=== PATIENT | female | born 1990 | race Caucasian/White ===

== ENCOUNTER 2017-08-14 13:02 | Observation (INO) ==
[2017-08-14] MEDS ORDERED: Ringers Solution, Lactated 1,000 ML IVC ONE (13:53)
[2017-08-14 14:34] LABS: Basophils % 0.3 %; Eosinophils # 0.1 K/mcL (0.0-0.6); Eosinophils % 1.2 %; Hematocrit 35.9 % (35.3-44.9); Hemoglobin 11.8 g/dL (11.5-15.4); Immature Granulocytes % 0.4 % (0-4); Lymphocytes # 1.7 K/mcL (0.6-4.6); Lymphocytes % 14.9 %; Mean Corpuscular HGB Conc 32.9 g/dL (31.6-35.5); Mean Corpuscular Hemoglobin 30.3 pg (28.0-33.3); Mean Corpuscular Volume 92.3 fL (83.0-100.0); Mean Platelet Volume 10.3 fL (9.4-12.4); Monocytes # 0.8 K/mcL (0.0-1.3); Monocytes % 7.4 %; Neutrophils # 8.5 K/mcL (1.6-8.9); Platelet Count 301 K/mcL (140-400); Red Blood Count 3.89 M/mcL (3.82-4.97); Red Cell Distribution Width 14.2 % (11.5-14.5); Segmented Neutrophils % 75.8 %
[2017-08-14 14:37] LABS: Bilirubin,Urine Negative (Negative); Blood,Urine Negative (Negative); Clarity,Urine Turbid (Clear); Color,Urine Dark Yellow (Yellow); Glucose,Urine (UA) Normal (Normal); Ketones,Urine Trace mg/dL (Negative); Leukocyte Esterase,Urine Small (Negative); Nitrite,Urine Negative (Negative); Protein,Urine 30 mg/dL (Neg-Trace); Specific Gravity,Urine 1.028 (1.010-1.025); Urobilinogen,Urine Normal (Normal)
[2017-08-14 14:38] LABS: Squamous Epithelial Cell,Urine Many per lpf (None-Few); WBC,Urine 30-50 per hpf (0-3)
[2017-08-14 14:56] LABS: Bacteria,Urine Many per hpf (None-Few); Calcium Oxalate Crystals,Urine Present
[2017-08-14 14:57] LABS: RBC,Urine 0-3 per hpf (0-3); Renal Epithelial Cells,Urine Few per hpf (None-Few)
[2017-08-14 14:58] LABS: Mucus,Urine Moderate (Few)
[2017-08-14 15:01] LABS: Amphetamine Screen,Urine Negative ng/mL (Cutoff=1000); Barbiturate Screen,Urine Negative ng/mL (Cutoff=200); Benzodiazepines Screen,Urine Negative ng/mL (Cutoff=200); Cannabinoid Screen,Urine Negative ng/mL (Cutoff = 50); Cocaine Screen,Urine Negative ng/mL (Cutoff= 300); Opiate Screen,Urine Negative ng/mL (Cutoff=300); Phencyclidine Screen,Urine Negative ng/mL (Cutoff=25)
--- NOTE | 2017-08-14 15:07 | OB/GYN Progress Note ---
Date of Encounter: 08/14/17 Time of Encounter: 15:02 - Assessment and Plan (1) Viral gastroenteritis Current Visit: Yes Status: Acute Pt with watery diarrhea and vomiting since 0300 yesterday. Pt hydrated with fluid, imodium po. Advised to continue to hydrate. Will discharge home in stable condition. (2) 35 weeks gestation of Current Visit: Yes Status: Acute (3) Elevated blood pressure affecting in third trimester, antepartum Current Visit: Yes Status: Acute Pt with mild BP elevation noted. PIH labs negative. Subjective - Subjective Principal diagnosis: Diarrhea Interval history: 27 y/o female at 35 6/7 presents to L&D with complaints of nausea, vomiting, diarrhea. She has had diarrhea approximately q1/2 hr since 0300 yesterday. She vomitted 3-4 times yesterday, twice today. She has noticed a racing heart, worse GERD despite omeprazole and low grade fever. She has kept some fluids and food down, but diarrhea has continued and her fatigue is worsening. She notes normal movement. Denies vaginal loss of fluid or bleeding, CP, sob. Antepartum ROS: movement normal, no loss of fluid, no vaginal bleeding, no contractions Objective - Vital Signs Vital Signs: Intake and Output 08/13/17 08/14/17 08/14/17 23:59 07:59 15:59 Other: Weight 116 kg Patient Weight 08/14/17 23:59 Weight 116 kg - Exam FHR: auscultation normal, category 1 Auscultation: bilateral: normal Abdomen: Present: normal appearance, soft, gravid, tenderness (diffuse), other ( hyperactive BS) Uterus: Present: normal, firm Comments: tachycardia - Labs Labs: Abnormal lab results WBC 11.2 K/mcL (4.3-11.1) H 08/14/17 14:15 Urine Clarity Turbid (Clear) A 08/14/17 14:25 Ur Specific [place] 1.028 (1.010-1.025) H 08/14/17 14:25 Urine Protein 30 mg/dL (Neg-Trace) H 08/14/17 14:25 Urine Ketones Trace mg/dL (Negative) H 08/14/17 14:25 Ur Leukocyte Esterase Small (Negative) H 08/14/17 14:25 Urine Microscopic WBC 30-50 per hpf (0-3) H 08/14/17 14:25 Ur Squamous Epith Cells Many per lpf (None-Few) H 08/14/17 14:25 Urine Bacteria Many per hpf (None-Few) H 08/14/17 14:25 Urine Mucus Moderate (Few) H 08/14/17 14:25 - Allied health notes Allied health notes reviewed: nursing
[2017-08-14 16:35] LABS: Protein/Creatinine Ratio,Urine 0.16 mg/mg (0.00-0.20)
[2017-08-14 16:38] LABS: Alanine Aminotransferase 8 Units/L (7-52); Aspartate Amino Transferase 15 Units/L (13-39); BUN/Creatinine Ratio 14 (6-26); Blood Urea Nitrogen 9 mg/dL (6-20); Lactate Dehydrogenase 129 Units/L (140-271); Uric Acid 6.1 mg/dL (2.3-7.6); eGFR For African Americans > 60 (> 60); eGFR For Non-African Americans > 60 (> 60)
== END 2017-08-14 16:45 | disposition home or self-care (01) ==
LOC: 1NENULAB
PROVIDERS: ADMIT Advanced Practice Midwife; ATTEND Advanced Practice Midwife

== ENCOUNTER 2017-09-02 08:16 | Inpatient (IN) ==
[2017-09-02 04:07] LABS: Amphetamine Screen,Urine Negative ng/mL (Cutoff=1000); Barbiturate Screen,Urine Negative ng/mL (Cutoff=200); Benzodiazepines Screen,Urine Negative ng/mL (Cutoff=200); Cannabinoid Screen,Urine Negative ng/mL (Cutoff = 50); Cocaine Screen,Urine Negative ng/mL (Cutoff= 300); Opiate Screen,Urine Negative ng/mL (Cutoff=300); Phencyclidine Screen,Urine Negative ng/mL (Cutoff=25)
[2017-09-02 04:29] LABS: Basophils % 0.2 %; Eosinophils # 0.2 K/mcL (0.0-0.6); Eosinophils % 1.3 %; Hemoglobin 11.7 g/dL (11.5-15.4); Immature Granulocytes % 0.6 % (0-4); Lymphocytes # 2.2 K/mcL (0.6-4.6); Lymphocytes % 15.6 %; Mean Corpuscular HGB Conc 33.4 g/dL (31.6-35.5); Mean Corpuscular Hemoglobin 30.2 pg (28.0-33.3); Mean Corpuscular Volume 90.4 fL (83.0-100.0); Mean Platelet Volume 10.7 fL (9.4-12.4); Monocytes # 0.7 K/mcL (0.0-1.3); Neutrophils # 10.9 K/mcL (1.6-8.9); Platelet Count 305 K/mcL (140-400); Red Blood Count 3.87 M/mcL (3.82-4.97); Red Cell Distribution Width 13.9 % (11.5-14.5); Segmented Neutrophils % 77.3 %
[2017-09-02 04:42] LABS: Alanine Aminotransferase 9 Units/L (7-52); Aspartate Amino Transferase 17 Units/L (13-39); BUN/Creatinine Ratio 14 (6-26); Blood Urea Nitrogen 10 mg/dL (6-20); Lactate Dehydrogenase 152 Units/L (140-271); Uric Acid 6.1 mg/dL (2.3-7.6); eGFR For African Americans > 60 (> 60); eGFR For Non-African Americans > 60 (> 60)
[2017-09-02 05:13] LABS: Protein/Creatinine Ratio,Urine 0.37 mg/mg (0.00-0.20)
--- NOTE | 2017-09-02 07:21 | OB/GYN History & Physical ---
Date of Encounter: 09/02/17 Time of Encounter: 07:17 Assessment and Plan (1) 38 weeks gestation of Current visit: Yes Status: Acute (2) Rh negative state in antepartum period Current visit: Yes Status: Acute (3) Elevated blood pressure affecting in third trimester, antepartum Current visit: No Status: Acute Will discuss POC with Dr. Gore. Anticipate admission for augmentation of labor due to elevated BP with elevated UPCR at 38 weeks. (4) GBS (group B Streptococcus carrier), +RV culture, currently Current visit: Yes Status: Acute History of Present Illness Chief complaint: contractions HPI: Ms. Donahue is a 27 year old female presenting at 38w4d with c/o contractions. She was found to be 2cm which is unchanged from last office visit , however, she was also found to have elevated blood pressures while in triage. PIH labs were WNL except urine protein:creatinine ratio was 0.37. Her blood pressures varied from normal to 140's/90's. She reports a mild headache since arrival to triage. No other complaints. No LF or VB. Good FM. A negative GBS positive Rubella immune Serologies negative Past Med Surg Social Fam HX - Past Medical History Medical history: other Psychiatric history: anxiety, depression - Social History Smoking Status: Never smoker Smokeless Tobacco Status: No Alcohol use: none Drug use: none - Family History Mother Living Status: Still Living Hx Family Cardiac Disorders: Yes (HTN) Hx Family Respiratory Disorders: Yes (copd) Hx Family Endocrine Disorder: Yes (diabetes) Obstetrical History - Pregnancies : 3 Para: 1 Term: 1 Ab's: 1 Livin Medications and Allergies Omeprazole [PriLOSEC] 20 mg PO DAILY 02/04/16 [History] Vit Calc,Iron,Folic [ Vitamins] 1 tab PO DAILY 08/14/17 [ History] Terazol 09/02/17 [History] 3 Allergy/AdvReac Type Severity Reaction Status Date / Time Sulfa (Sulfonamide Allergy Hives Verified 09/02/17 02:52 Antibiotics) Review of System OB All systems PM: reviewed and no additional remarkable complaints except as stated Exam - Constitutional Constitutional: well developed, well nourished, no acute distress - HEENT HEENT: Mucus Membranes Moist - Lungs Respiratory exam: CTAB - Cardiovascular Cardiovascular exam: RRR - Abdomen Abdomen: Present: gravid, non tender - Extremities Extremities exam: pedal edema (mild) Deep Tendon Reflex Grade: 2+ Normal - Vagina Vagina: Present: normal moisture - Cervix Dilation: 2 Effacement: 25 Station: -2 - Uterus Uterus exam: Present: normal size - Anus/Rectum Anus/Rectum: Present: normal perianal skin Results Result Diagrams: 09/02/17 04:05 09/02/17 04:05 Abnormal lab results WBC 14.1 K/mcL (4.3-11.1) H 09/02/17 04:05 Hct 35.0 % (35.3-44.9) L 09/02/17 04:05 Neutrophils # 10.9 K/mcL (1.6-8.9) H 09/02/17 04:05 Protein/Creatinin Ratio 0.37 mg/mg (0.00-0.20) H 09/02/17 03:40 Urine Total Protein 42 mg/dL (1-14) H 09/02/17 03:40 All other labs normal. - VTE Reasons for not Prescribing Prophylaxis: Treatment not Indicated - Low risk for VTE
[~2017-09-02 08:16] MED LIST: *HR* Nalbuphine 10 MG/ML AMPUL IVP PRN; Famotidine 20 MG/2 ML VIAL IVP PRN; Lidocaine 1% 20 ML MDV INFILT PRN; Naloxone 0.4 MG/ML INJ IVP PRN; Ondansetron 4 MG/2 ML VIAL IVP PRN
[2017-09-02] MEDS ORDERED: Ringers Solution, Lactated 1,000 ML IVC SCH (08:30)
[2017-09-02] MEDS ORDERED: Penicillin G Potassium 5,000,000 UNIT in 0.9 % Sodium Chloride Mini Bag 100 ML IVPB ONE (09:45)
--- NOTE | 2017-09-02 10:40 | OB Labor Progress Note ---
Date of Encounter: 09/02/17 Time of Encounter: 10:38 Labor Progress Note - Subjective Subjective: Pt reports contractions are manageable - Cervix Cervix: 4/50/-2 - Heart Tones Heart Tones: Baseline 140 Moderate variability Accelerations present 15x15 No decelerations FHR category I - [place]: Contractions every 2-4 - Interventions Interventions: Start IV PCN - Plan Plan: Continue expectant management IV pcn for gbs prophylaxis CEFM Anticipate Dr. Gore aware of poc and agrees
--- NOTE | 2017-09-02 10:52 | Anesthesia Evaluation PreOp ---
Date of Encounter: 09/02/17 Time of Encounter: 10:50 - Past History Planned Operation: BETTIE Cardiac History: Denies any Significant Hx Pulmonary History: Asthma (remote, exacerbates w URI) SPINDLE TESTER History: Denies Any Significant HX Other Medical History: GERD Anesthesia History: No Prior Anesthetic Complications, Past Anesthesia (isa, bettie, tonsil) : Yes Test: Positive Alcohol Use: none Drug use: none Medications and Allergies Omeprazole [PriLOSEC] 20 mg PO DAILY 02/04/16 [History] Vit Calc,Iron,Folic [ Vitamins] 1 tab PO DAILY 08/14/17 [ History] Terazol 09/02/17 [History] 3 Allergy/AdvReac Type Severity Reaction Status Date / Time Sulfa (Sulfonamide Allergy Hives Verified 09/02/17 02:52 Antibiotics) - Meds/Allergy Pre-op Review Medications Reviewed: Yes Allergies Reviewed: Yes Beta Blockers on Current Med List: No Anesthesia Results - Labs 09/02/17 04:05 09/02/17 04:05 Anesthesia Exam see nsg note Height: 5'7" Weight: 116 NPO (# of Hours): 3 Pain Scale: 2 Pain Scale Used: Numeric (1 - 10) - HEENT Pupil (Motor): Pupils equal Mallampati: III Teeth: Normal Oral Opening: Greater than 3 - SPINDLE TESTER LOC: Oriented SPINDLE TESTER Motor: Normal RUE, Normal LUE, Normal RLE, Normal LLE, Normal Face SPINDLE TESTER Sensory: Normal: RUE, LUE, RLE, LLE, Face - Cardiac Rhythm: Regular Murmur: None - Pulmonary Breath Sounds: bilateral Clear Respiratory Effort: Symmetrical Anesthesia Assess/Plan ASA Score: 2 Modified [place] Scale for Level of Consciousness: Cooperative, oriented, and tranquil Anesthetic Plan: Regional Autologous Blood: No Monitoring Plan: Standard Monitors Recovery Plan: Other (risks discussed, questions answered, consented)
[2017-09-02] MEDS ORDERED: Mag Hydrox/Al Hydrox/Simeth 30 ML UDC PO PRN (12:59)
[2017-09-02] MEDS: Penicillin G Potassium 2,500,000 UNIT in 0.9 % Sodium Chloride 100 ML IVPB SCH ×2 (14:08→19:27)
[2017-09-02] MEDS ORDERED: Oxytocin 20 units/ LR 1000 mL 20 UNIT/1,000 ML BAG IVC SCH (14:15)
--- NOTE | 2017-09-02 16:25 | OB Labor Progress Note ---
Date of Encounter: 09/02/17 Time of Encounter: 16:22 Labor Progress Note - Subjective Subjective: Pt reports contractions continue to be mild - Cervix Cervix: 4/50/-2 - Heart Tones Heart Tones: Baseline 155 Moderate variability Accelerations present 15x15 No decelerations FHR Category I - [place]: Contractions every 5-6 minutes - Interventions Interventions: continue to increase pitocin - Plan Plan: Continue expectant mangement. Use peanut ball Anticipate vaginal delivery
--- NOTE | 2017-09-02 19:28 | OB Labor Progress Note ---
Date of Encounter: 09/02/17 Time of Encounter: 19:11 Labor Progress Note - Subjective Subjective: Pt reports mild discomfort with contractions. Rates them 5/10. Not ready for epidural yet. Dr. Gore to bedside re: no cervical change for several hours. Discussion of epidural with AROM vs. c/s was had and patient chooses epidural with AROM. - Cervix Cervix: 4/50/-3 - Heart Tones Heart Tones: Baseline 135 Moderate variability Accelerations present 15x15 No decelerations FHR Category I - [place]: Contractions 3-4 and palpate mild - Interventions Interventions: Epidural with AROM per Dr. Gore - Plan Plan: Place epidural Plan for Dr. Gore to AROM Anticipate
[2017-09-02] MEDS ORDERED: *HR* Ropivacaine/PF 0.2% 20 ML VIAL EP ONE ×2 (19:33→19:36)
[2017-09-02] MEDS ORDERED: *HR* FentaNYL (PF) 100 MCG/2 ML VIAL EP ONE ×2 (19:33→19:36)
[2017-09-02] MEDS ORDERED: Epidural Premix (fent/bupiv) 110 ML EP ONE (19:38)
[2017-09-02] MEDS ORDERED: *HR* FentaNYL (PF) 100 MCG/2 ML VIAL ONE (19:38)
[2017-09-02] MEDS ORDERED: *HR* Ropivacaine/PF 0.2% 20 ML VIAL ONE (19:39)
[2017-09-02] MEDS ORDERED: Epidural Premix (fent/bupiv) 110 ML EP SCH ×2 (19:45)
--- NOTE | 2017-09-02 20:05 | Anesthesia Procedures ---
Date of Encounter: 09/02/17 Time of Encounter: 20:03 Procedures: Anesthesia - Epidural/Spinal Patient examined: Yes OB Eval: Gestational age: 84.4 OB Eval: : 3 OB Eval: Hx Para: 1 OB Eval: Dilated at (cm): 5 OB Eval: Contractions: Non-stressed pattern Consent Obtained: Yes Supplemental Oxygen: None/Room Air Site Prep: Aseptic Technique, Sterile prep and drape, 0.5% Chlorhexidine/Alcohol Patient position: upright Local Anesthetic: Lidocaine 1% Amount of Local Anesthetic used: 3 Touhy Needle Gauge: 18 Touhy Needle Depth (cm): 8 Catheter Depth at Skin (cm): 18 Test Dose (1.5% Lido + Epi): Volume given (mls): 3 Test Dose Result: Negative Loading Dose: Fentanyl (mcg): 100 Loading Dose: Other: rop 0.2% 10 cc Loading Dose Administered: Thru Touhy Needle Infusion Med: 0.125% Bupivacaine w/ 2 mcg/ml Fentanyl Infusion Rate (mls/hr): 15 (pcea 5cc q30") Catheter Secured in Place: Tegaderm Interspace Used: L3-L4 Loss of Resistance (LALITHA): Yes Blood: No CSF: No Paresthesia: No Procedure: aseptic, tolerated well, VSS, effective Vitals + FHT's: 147/78 108 fht 133
--- NOTE | 2017-09-02 21:31 | OB Labor Progress Note ---
Date of Encounter: 09/02/17 Time of Encounter: 21:40 Labor Progress Note - Subjective Subjective: Pt comfortable with epidural. Discussion ongoing regarding how to proceed for labor to progress. Pt and partner feel secure in their decision to AROM. Will proceed with Dr. Gore in the room. - Cervix Cervix: 4/50/-3 - Heart Tones Heart Tones: Baseline 140 Moderate variability Accelerations 15x15 No decelerations FHR Category I - [place]: Contractions present q 3-5 - Interventions Interventions: AROM clear fluid per Dr. Gore with fundal pressure from CNM per request IUPC and FSE placed without difficulty per Dr. Gore. After placement, FHR dropped to 60's. Many position changes were made from left side to right side and hands and knees with moderate recovery of FHR. O2 applied and IV bolus infusing. - Plan Plan: Continue to monitor closely Restart pitocin at 2mu/min Frequent position changes with peanut ball Anticipate Dr. Gore aware of POC and agrees
[2017-09-03] MEDS ORDERED: Epidural Premix (fent/bupiv) 110 ML EP ONE ×2 (02:37→07:35)
[2017-09-03] MEDS: Penicillin G Potassium 2,500,000 UNIT in 0.9 % Sodium Chloride 100 ML IVPB SCH ×2 (04:39→08:31)
--- NOTE | 2017-09-03 05:14 | OB Labor Progress Note ---
Date of Encounter: 09/03/17 Time of Encounter: 05:11 Labor Progress Note - Subjective Subjective: Pt reports she is comfortable with epidural. - Cervix Cervix: 7-8/90/-1-0 - Heart Tones Heart Tones: Baseline 130 Moderate variability Accelerations present 15x15 Frequent variable decelerations FHR Category II - [place]: Contractions q 2-3 minutes. - Interventions Interventions: SVE Position change with peanut ball - Plan Plan: Continue expectant management Frequent position changes with peanut ball Anticipate
--- NOTE | 2017-09-03 09:58 | OB/GYN Procedure Note ---
Delivery - Delivery Date: 09/03/17 Provider: Aleksandr Gore (Caitlin Rojas DO, PGY2) Intrapartum events: polyhydramnios Delivery induction: AROM, oxytocin, misoprostol Delivery monitor: external FHT, external uterine, internal FHT, internal uterine Anesthesia: epidural Estimated Blood Loss: 200 - (s) Infant A Infant Delivery Date: 09/03/17 Infant Delivery Time: 09:25 Presentation: vertex Position: YAHIR Route of delivery: Gender: Male Viability: Viable Pounds: 8 Ounces: 3 Weight Gram: 3.725 kg at 1 minute: 8 at 5 mins: 9 Shoulder Dystocia: not encountered Shoulder Dystocia Maneuvers: Larissa maneuver Specimens collected: cord blood Placenta: spontaneous Cord: nuchal cord, 3 umbilical vessels, nuchal cut - Repair Episiotomy: none Laceration Description: Superficial - Complications Delivery complications: none Delivery comments: Patient progressed to complete, +1 station and began pushing. Under maternal effort a live born male was delivered via , vertex, YAHIR with APGARS 8/9. Once the head delivered a tight nuchal cord was discovered. It was clamped and cut. The shoulders delivered easily and the body quickly followed. The baby was placed on the maternal abdomen for drying and stimulation. The placenta delivered spontaneously, intact with a 3-vessel cord. EBL 200. There were only superficial lacerations encountered that were hemostatic and not repaired. Mother and baby were left bonding skin to skin in labor and delivery. Caitlin Rojas DO, PGY2 was present and assisted with delivery. - Disposition Mom disposition: stable in LDR disposition: stable in LDR - Comments Comments: This is Dr. Gore dictating the attending note on the Cheyanne Rodriguezens. The resident's note was reviewed and I am in agreement with his contents. I was present during the second and third stage of delivery.
[2017-09-03] MEDS ORDERED: Rho Immune Globulin 1,500 UNIT SYRINGE IM PRN (12:09)
[2017-09-03] MEDS ORDERED: Ibuprofen 600 MG TABLET PO PRN (12:09)
[2017-09-03] MEDS ORDERED: Acetaminophen 325 MG TABLET PO PRN (12:09)
[2017-09-03] MEDS ORDERED: Lanolin 7 G OINT...G. TP PRN (12:09)
[2017-09-03] MEDS ORDERED: Oxytocin 20 units/ LR 1000 mL 20 UNIT/1,000 ML BAG IVC SCH (12:09)
[2017-09-03] MEDS ORDERED: Benzocaine/Menthol 56 GM AEROSOL SPRAY TP PRN (12:09)
[2017-09-04 01:58] LABS: Basophils % 0.3 %; Eosinophils # 0.3 K/mcL (0.0-0.6); Hematocrit 30.2 % (35.3-44.9); Immature Granulocytes % 0.8 % (0-4); Lymphocytes # 4.1 K/mcL (0.6-4.6); Lymphocytes % 26.9 %; Mean Corpuscular HGB Conc 33.4 g/dL (31.6-35.5); Mean Corpuscular Hemoglobin 30.7 pg (28.0-33.3); Mean Corpuscular Volume 91.8 fL (83.0-100.0); Mean Platelet Volume 10.8 fL (9.4-12.4); Monocytes # 1.2 K/mcL (0.0-1.3); Monocytes % 8.1 %; Neutrophils # 9.5 K/mcL (1.6-8.9); Platelet Count 267 K/mcL (140-400); Red Blood Count 3.29 M/mcL (3.82-4.97); Red Cell Distribution Width 13.5 % (11.5-14.5); Segmented Neutrophils % 61.9 %
[2017-09-04 02:00] LABS: Hemoglobin 10.1 g/dL (11.5-15.4)
[2017-09-04 08:35] VITALS: BP 111/67
[2017-09-04] MEDS ORDERED: Prenatal Vit/FA 1 EACH TABLET PO SCH (09:00)
--- NOTE | 2017-09-04 11:25 | Discharge Summary ---
Date of Encounter: 09/04/17 Time of Encounter: 11:22 - Discharge Diagnosis (1) Vaginal delivery Priority: Primary Status: Acute Comments: Stable in . Pain well managed on po pain medication, tolerates diet, bleeding minimal, bottle feeding. (2) anemia Priority: Secondary Status: Acute Comments: Will discharge home on iron. - Discharge Medications Prescriptions: Ibuprofen [Motrin] 600 mg PO Q6HR PRN #60 tablet PRN Reason: Cramping Docusate [Colace] 100 mg PO BID #60 capsule Ferrous Sulfate 325 mg PO DAILY #60 tablet Home Medications: Omeprazole [PriLOSEC] 20 mg PO DAILY 02/04/16 [History] Vit Calc,Iron,Folic [ Vitamins] 1 tab PO DAILY 08/14/17 [ History] Acetaminophen [Tylenol] 650 mg PO Q6HR PRN tablet 09/04/17 [Rx] Benzocaine/Menthol [place] [Dermoplast [place]] 1 appl TP QID PRN aerosol 09/04/17 [Rx] Docusate [Colace] 100 mg PO BID #60 capsule 09/04/17 [Rx] Ferrous Sulfate 325 mg PO DAILY #60 tablet 09/04/17 [Rx] Ibuprofen [Motrin] 600 mg PO Q6HR PRN #60 tablet 09/04/17 [Rx] Lanolin [Lansinoh] 1 appl TP Q4HR PRN oint...g. 09/04/17 [Rx] Vit/FA 1 each PO DAILY tablet 09/04/17 [Rx] Allergies/Adverse Reactions: 3 Allergy/AdvReac Type Severity Reaction Status Date / Time Sulfa (Sulfonamide Allergy Hives Verified 09/02/17 02:52 Antibiotics) Data Procedures and tests throughout hospitalization: Laboratory Tests 09/02/17 09/02/17 09/02/17 03:40 03:40 04:05 WBC 14.1 H RBC 3.87 Hgb 11.7 Hct 35.0 L MCV 90.4 MCH 30.2 MCHC 33.4 RDW 13.9 Plt Count 305 MPV 10.7 Immature Gran % 0.6 Seg Neutrophils % 77.3 Lymphocytes % 15.6 Monocytes % 5.0 Eosinophils % 1.3 Basophils % 0.2 Neutrophils # 10.9 H Lymphocytes # 2.2 Monocytes # 0.7 Eosinophils # 0.2 Basophils # 0.0 BUN Creatinine Est GFR ( Amer) Est GFR (Non-Af Amer) BUN/Creatinine Ratio Uric Acid AST ALT Lactate Dehydrogenase Urine Creatinine 114 Protein/Creatinin Ratio 0.37 H Urine Total Protein 42 H Urine Opiates Screen Negative Ur Barbiturates Screen Negative Ur Phencyclidine Scrn Negative Ur Amphetamines Screen Negative U Benzodiazepines Scrn Negative Urine Cocaine Screen Negative U Marijuana (THC) Screen Negative Screen Baby's Blood Type Mother's Blood Type Rhogam Indicated Rhogam Req for Mother 09/02/17 09/03/17 09/04/17 04:05 09:55 01:22 WBC 15.4 H RBC 3.29 L Hgb 10.1 L D Hct 30.2 L MCV 91.8 MCH 30.7 MCHC 33.4 RDW 13.5 Plt Count 267 MPV 10.8 Immature Gran % 0.8 Seg Neutrophils % 61.9 Lymphocytes % 26.9 Monocytes % 8.1 Eosinophils % 2.0 Basophils % 0.3 Neutrophils # 9.5 H Lymphocytes # 4.1 Monocytes # 1.2 Eosinophils # 0.3 Basophils # 0.0 BUN 10 Creatinine 0.69 Est GFR ( Amer) > 60 Est GFR (Non-Af Amer) > 60 BUN/Creatinine Ratio 14 Uric Acid 6.1 AST 17 ALT 9 Lactate Dehydrogenase 152 Urine Creatinine Protein/Creatinin Ratio Urine Total Protein Urine Opiates Screen Ur Barbiturates Screen Ur Phencyclidine Scrn Ur Amphetamines Screen U Benzodiazepines Scrn Urine Cocaine Screen U Marijuana (THC) Screen Screen NEGATIVE Baby's Blood Type A RH POSITIVE Mother's Blood Type A RH NEGATIVE Rhogam Indicated YES Rhogam Req for Mother 1 Labs on day of discharge: Labs from last 24 hours 09/04/17 09/03/17 01:22 09:55 WBC 15.4 H RBC 3.29 L Hgb 10.1 L D Hct 30.2 L MCV 91.8 MCH 30.7 MCHC 33.4 RDW 13.5 Plt Count 267 MPV 10.8 Immature Gran % 0.8 Seg Neutrophils % 61.9 Lymphocytes % 26.9 Monocytes % 8.1 Eosinophils % 2.0 Basophils % 0.3 Neutrophils # 9.5 H Lymphocytes # 4.1 Monocytes # 1.2 Eosinophils # 0.3 Basophils # 0.0 Screen NEGATIVE Baby's Blood Type A RH POSITIVE Mother's Blood Type A RH NEGATIVE Rhogam Indicated YES Rhogam Req for Mother 1 Date of admission: 09/02/17 08:16 Primary care physician: Ellis Araya MD Consults: 09/03/17 12:09 Consult to Director Housekeeping [CONS] Routine Comment: Vaginal delivery, consult needed Discharging clinician: Brenda Lopez Anticipated date of discharge: 09/04/17 - Patient Status Disposition: Home, Self-Care Condition: Good Functional capacity at discharge: independent ambulation Overall status at discharge: patient is back to baseline - Discharge Instructions Instructions: Anemia (GEN) Follow Up With: Ellis Araya MD [Primary Care Provider] - Aleksandr Gore MD [Partnered Physician] - - Diet and Activity Activity: resume usual activities as tolerated Diet: regular diet Hospital Course Reason for admission: induction of labor, IUP at term Delivery: Episiotomy: none Laceration: none Other procedures: none complications: none Discharge diagnosis: IUP at term delivered baby: male Hospital course: Delivery - Delivery Date: 09/03/17 Provider: Aleksandr Gore (Caitlin Rojas DO, PGY2) Intrapartum events: polyhydramnios Delivery induction: AROM, oxytocin, misoprostol Delivery monitor: external FHT, external uterine, internal FHT, internal uterine Anesthesia: epidural Estimated Blood Loss: 200 - (s) Infant A Delivery Date: 09/03/17 Delivery Time: 09:25 Presentation: vertex Position: YAHIR Route of delivery: Gender: Male Viability: Viable Pounds: 8 Ounces: 3 Weight Gram: 3.725 kg at 1 minute: 8 at 5 mins: 9 Shoulder Dystocia: not encountered Shoulder Dystocia Maneuvers: Larissa maneuver Specimens collected: cord blood Placenta: spontaneous Cord: nuchal cord, 3 umbilical vessels, nuchal cut - Repair Episiotomy: none Laceration Description: Superficial - Complications Delivery complications: none Delivery comments: Patient progressed to complete, +1 station and began pushing. Under maternal effort a live born male was delivered via , vertex, YAHIR with APGARS 8/9. Once the head delivered a tight nuchal cord was discovered. It was clamped and cut. The shoulders delivered easily and the body quickly followed. The baby was placed on the maternal abdomen for drying and stimulation. The placenta delivered spontaneously, intact with a 3-vessel cord. EBL 200. There were only superficial lacerations encountered that were hemostatic and not repaired. Mother and baby were left bonding skin to skin in labor and delivery. Caitlin Rojas DO, PGY2 was present and assisted with delivery. - Disposition Mom disposition: stable in PP and appropriate for discharge. Time Attestation: Total time spent providing and/or coordinating discharge services: Time Spent: Less than 30 minutes Exam - Constitutional Vitals: Temp Pulse Resp BP Pulse Ox 98.3 F 98 16 111/67 99 09/04/17 08:34 09/04/17 08:34 09/04/17 08:34 09/04/17 08:34 09/04/17 08:34 General appearance IM: A&O X 3 - Respiratory Respiratory exam: Present: CTAB - Cardiovascular Cardiovascular exam IM: Present: RRR - GI/Abdominal GI/Abdominal exam IM: soft - Uterine Tone: Firm Uterus Position: At Umbilicus - Extremities Exam Extremities exam IM: Present: normal capillary refill, normal inspection - Neurological Exam Neurological exam: normal gait, oriented X3 - Psychiatric Additional comments: Reports good mood.
== END 2017-09-04 12:50 | disposition home or self-care (01) | DRG 775 ==
LOC: 1NENULAB → 1NENUOBS 09-03 12:07
PROVIDERS: ADMIT Registered Nurse; ATTEND Registered Nurse

== ENCOUNTER → 2021-08-16 18:50 | Observation (INO) | END | disposition home or self-care (01) | LOC: 1NENULAB | PROVIDERS: ADMIT Advanced Practice Midwife; ATTEND Advanced Practice Midwife ==

== ENCOUNTER → 2021-08-25 11:49 | Observation (INO) | END | disposition home or self-care (01) | LOC: 1NENULAB | PROVIDERS: ADMIT Advanced Practice Midwife; ATTEND Advanced Practice Midwife ==

== ENCOUNTER 2021-08-27 03:54 | Inpatient (IN) ==
[2021-08-27] MEDS ORDERED: Metoclopramide 10 MG/2 ML VIAL IVP PRN ×2 (04:04→22:49)
[2021-08-27] MEDS ORDERED: Ondansetron 4 MG/2 ML VIAL IVP PRN ×2 (04:04→22:49)
[2021-08-27] MEDS ORDERED: *HR* Nalbuphine 10 MG/ML AMPUL IV PRN ×2 (04:04→22:49)
[2021-08-27] MEDS ORDERED: Naloxone 0.4 MG/ML INJ IVP PRN (04:04)
[2021-08-27] MEDS ORDERED: miSOPROStoL 25 MCG TABLET PO PRN (04:04)
[2021-08-27] MEDS ORDERED: Famotidine 20 MG/2 ML VIAL IVP PRN (04:04)
[2021-08-27 04:39] LABS: Basophils # 0.1 K/mcL (0.0-0.2); Basophils % 0.6 %; Eosinophils # 0.3 K/mcL (0.0-0.6); Eosinophils % 2.6 %; Hematocrit 35.5 % (35.3-44.9); Hemoglobin 11.9 g/dL (11.5-15.4); Immature Granulocytes % 0.7 % (0-4); Lymphocytes # 2.2 K/mcL (0.6-4.6); Lymphocytes % 20.2 %; Mean Corpuscular HGB Conc 33.5 g/dL (31.6-35.5); Mean Corpuscular Hemoglobin 32.1 pg (28.0-33.3); Mean Corpuscular Volume 95.7 fL (83.0-100.0); Mean Platelet Volume 10.2 fL (9.4-12.4); Monocytes % 8.9 %; Neutrophils # 7.3 K/mcL (1.6-8.9); Platelet Count 225 K/mcL (140-400); Red Blood Count 3.71 M/mcL (3.82-4.97); Red Cell Distribution Width 14.8 % (11.5-14.5)
[2021-08-27 04:47] LABS: Amphetamine Screen,Urine Negative ng/mL (Cutoff=1000); Barbiturate Screen,Urine Negative ng/mL (Cutoff=200); Benzodiazepines Screen,Urine Negative ng/mL (Cutoff=200); Cannabinoid Screen,Urine Negative ng/mL (Cutoff = 50); Cocaine Screen,Urine Negative ng/mL (Cutoff= 300); Opiate Screen,Urine Negative ng/mL (Cutoff=300); Phencyclidine Screen,Urine Negative ng/mL (Cutoff=25)
[2021-08-27] MEDS ORDERED: EPHEDrine 50 MG/ML VIAL IVP PRN (07:20)
[2021-08-27] MEDS: Ringers Solution, Lactated 1,000 ML IVC SCH ×2 (09:51→17:10)
[2021-08-27] MEDS: Oxytocin 30 UNIT/503 ML BAG IVC SCH ×2 (09:52→21:11)
[2021-08-27] MEDS: Epidural Premix (fent/bupiv) 110 ML EP SCH ×2 (11:59→17:08)
[2021-08-27] MEDS ORDERED: Ropivacaine/PF 0.2% 20 ML VIAL ONE (14:39)
[2021-08-27] MEDS ORDERED: Acetaminophen 325 MG TABLET PO ONE (17:34)
[2021-08-27] MEDS ORDERED: *HR* FentaNYL (PF) 100 MCG/2 ML VIAL ONE (18:06)
[2021-08-27] MEDS ORDERED: Lidocaine/EPI 1:200k 2% PF 20 ML VIAL ONE (18:06)
[2021-08-27] MEDS ORDERED: *HR* Succinylcholine 200 MG/10 ML VIAL IVP ONE (18:09)
[2021-08-27] MEDS ORDERED: Sodium Bicarbonate 50 MEQ/50 ML VIAL ONE (18:09)
[2021-08-27] MEDS ORDERED: *HR* Midazolam HCl 2 MG/2 ML VIAL ONE (18:18)
[2021-08-27] MEDS ORDERED: *HR* Oxytocin 10 UNIT/ML VIAL ONE (18:19)
[2021-08-27] MEDS ORDERED: *HR* Morphine Sulfate/PF 10 MG/10 ML AMPUL ONE (18:26)
[2021-08-27] MEDS ORDERED: Oxytocin 30 UNIT/503 ML BAG IVC ONE (19:03)
[2021-08-27] MEDS ORDERED: *HR* Ropivacaine/PF 0.5% 20 ML VIAL ONE (19:14)
[2021-08-27] MEDS ORDERED: Rho Immune Globulin 1,500 UNIT SYRINGE IM ONE (22:49)
[2021-08-27] MEDS ORDERED: Acetaminophen 325 MG TABLET PO SCH (22:49)
[2021-08-28] MEDS: Ibuprofen 600 MG TABLET PO SCH ×3 (00:15→16:55)
[2021-08-28] MEDS: Acetaminophen 325 MG TABLET PO SCH ×3 (00:15→16:54)
[2021-08-28] MEDS ORDERED: Ketorolac 30 MG/ML VIAL IVP ONE (01:00)
[2021-08-28] MEDS: *HR* OxyCODONE Immed Rel 5 MG TABLET PO PRN ×4 (05:27→20:10)
[2021-08-28 06:06] LABS: Basophils % 0.2 %; Hematocrit 29.4 % (35.3-44.9); Immature Granulocytes % 0.5 % (0-4); Lymphocytes # 1.2 K/mcL (0.6-4.6); Lymphocytes % 7.1 %; Mean Corpuscular HGB Conc 33.7 g/dL (31.6-35.5); Mean Corpuscular Hemoglobin 32.7 pg (28.0-33.3); Mean Platelet Volume 10.6 fL (9.4-12.4); Monocytes # 0.9 K/mcL (0.0-1.3); Monocytes % 5.3 %; Neutrophils # 14.1 K/mcL (1.6-8.9); Platelet Count 227 K/mcL (140-400); Red Blood Count 3.03 M/mcL (3.82-4.97); Red Cell Distribution Width 14.5 % (11.5-14.5); Segmented Neutrophils % 86.9 %; White Blood Count 16.3 K/mcL (4.3-11.1)
[2021-08-28 06:24] LABS: Hemoglobin 9.9 g/dL (11.5-15.4)
[2021-08-28 06:52] VITALS: O2SAT 99
[2021-08-28] MEDS: cephALEXin 500 MG CAPSULE PO SCH ×3 (08:03→20:10)
[2021-08-28] MEDS: metroNIDAZOLE 500 MG TABLET PO SCH ×3 (08:03→20:10)
[2021-08-28] MEDS: Simethicone 80 MG TAB.CHEW PO SCH ×4 (08:03→20:11)
[2021-08-28] MEDS: *HR* Enoxaparin 60 MG/0.6 ML SYRINGE SQ SCH ×2 (08:05→20:10)
[2021-08-28] MEDS: Prenatal Vit/FA 1 EACH TABLET PO SCH (08:08)
[2021-08-28] MEDS ORDERED: Rho Immune Globulin 1,500 UNIT SYRINGE IM ONE (09:08)
[2021-08-29] MEDS: *HR* OxyCODONE Immed Rel 5 MG TABLET PO PRN ×2 (03:23→07:59)
[2021-08-29 07:51] VITALS: BP 115/70; PULSE 96; TEMP 98.2
[2021-08-29] MEDS: cephALEXin 500 MG CAPSULE PO SCH (07:56)
[2021-08-29] MEDS: Prenatal Vit/FA 1 EACH TABLET PO SCH (07:57)
[2021-08-29] MEDS: *HR* Enoxaparin 60 MG/0.6 ML SYRINGE SQ SCH (07:57)
[2021-08-29] MEDS: metroNIDAZOLE 500 MG TABLET PO SCH (07:57)
[2021-08-29] MEDS: Simethicone 80 MG TAB.CHEW PO SCH (07:57)
== END 2021-08-29 10:15 | disposition home or self-care (01) | DRG 785 ==
LOC: 1NENULAB 03:54 → 1NENUOBS 22:55
PROVIDERS: ADMIT Obstetrics & Gynecology; ATTEND Obstetrics & Gynecology